=== PATIENT | female | born 2000 | race Caucasian/White ===

== ENCOUNTER 2024-07-19 14:40 | Emergency (ER) | payer OTHER, SELFPAY ==
[~2024-07-19] VITALS: Ht 157.5 cm; Wt 59.2 kg
[2024-07-19] MEDS: IBUPROFEN 600MG TAB PO ONE (15:36)
[2024-07-19] MEDS ORDERED: CYCL5TAB4 PO (16:46)
[2024-07-19] MEDS ORDERED: NAPR-837 PO (16:46)
[2024-07-19 17:06] VITALS: BP 134/67; TEMP 98.4; O2SAT 99
== END 2024-07-19 17:15 | disposition home or self-care (01) ==
LOC: M ED 14:40 → EDBD 14:40 → M ED 17:15
DX: S40.022A Contusion of left upper arm, initial encounter (principal); Y92.9 Unspecified place or not applicable; Y93.9 Activity, unspecified; Y99.9 Unspecified external cause status; V49.50XA Passenger injured in collision with unspecified motor vehicles in traffic accident, initial encounter; Z79.899 Other long term (current) drug therapy
CPT/HCPCS: 70450; 72125; 99291; 99292; G0390